=== PATIENT | male | born 1940 | race Caucasian/White ===

== ENCOUNTER 2024-12-01 15:10 | Emergency (ER) | payer OTHER, MEDICARE, BC ==
[~2024-12-01] VITALS: Ht 177.8 cm; Wt 89.0 kg
[2024-12-01 16:00] LABS: BASOPHILS 0.4 % (0.2-1.2); EOSINOPHILS 1.1 % (0.8-7.0); LYMPHOCYTES 13.8 % (21.8-53.1); MCH 32.9 PG (25.7-32.2); MCHC 33.3 g/dL (32.3-36.5); MCV 98.8 fL (79.0-92.2); MONOCYTES 10.3 % (5.3-12.2); NEUTROPHILS 73.6 % (34.0-67.9); RBC 4.22 M/uL (4.63-6.08)
[2024-12-01 16:10] LABS: ALT (SGPT) 18.0 U/L (14-59); AST (SGOT) 14.0 U/L (15-37); GLOMERULAR FILTRATION RATE,EST 83.0 mL/min (>60); PROTEIN, TOTAL 6.9 g/dL (6.4-8.2); UREA NITROGEN 13.0 mg/dL (7-18)
[2024-12-01] MEDS ORDERED: HUMAN PROTHROMBIN COMPLX(PCC) 500 UNIT/20 ML VIAL IV ONE (16:15)
[2024-12-01] MEDS ORDERED: SODIUM CHLORIDE 0.9% 50 ML IV PRN (16:15)
[2024-12-01] MEDS ORDERED: TRANEXAMIC ACID IN NACL,ISO-OS 1,000 MG/100 ML PIGGYBACK IV ONE (16:15)
[2024-12-01 16:27] LABS: INR 1.29 (0.80-1.30); PROTIME 15.3 Sec (11.2-14.2)
[2024-12-01 17:05] VITALS: BP 135/65
== END 2024-12-01 17:05 | disposition short-term general hospital (02) ==
LOC: ED 15:10
PROVIDERS: Emergency Medicine
DX: S06.6X9A Traumatic subarachnoid hemorrhage with loss of consciousness of unspecified duration, initial encounter (principal); S12.390A Other displaced fracture of fourth cervical vertebra, initial encounter for closed fracture; S12.490A Other displaced fracture of fifth cervical vertebra, initial encounter for closed fracture; S12.591A Other nondisplaced fracture of sixth cervical vertebra, initial encounter for closed fracture; Z79.01 Long term (current) use of anticoagulants; W18.30XA Fall on same level, unspecified, initial encounter
CPT/HCPCS: 36415; 70450; 72125; 80053; 85025; 85610; 85730; 96365; 96375; 99285-25; J7168